=== PATIENT | male | born 1955 | race Caucasian/White ===

== ENCOUNTER → 2017-09-13 | Outpatient (CLI) | payer OTHER ==
--- NOTE | 2017-09-13 11:35 | RADIOLOGY REPORT (SQ) ---
EXAM DESCRIPTION: VENOUS UNILATERAL LOWER COMPLETED DATE/TIME: 09/13/2017 11:24 am REASON FOR STUDY: LLE SWELLING M79.89 OTHER SPECIFIED SOFT TISSUE DISORDERS COMPARISON: None. TECHNIQUE: Dynamic and static knutson scale and color images acquired of the left leg venous system. Se lected spectral images acquired with additional compression and augmentation maneuvers. The contralat eral common femoral vein and saphenofemoral junction were also imaged. Images stored on PACS. LIMITATIONS: None. FINDINGS: LEFT COMMON FEMORAL: Normal phasicity, compression and augmentation. No visualized echogenic material on g ray scale. No defects on color images. FEMORAL: Normal compression and augmentation. No visualized echogenic material on knutson scale. No defe cts on color images. POPLITEAL: Normal compression, augmentation. No visualized echogenic material on knutson scale. No defec ts on color images. CALF VESSELS: Normal compression, augmentation. No visualized echogenic material on knutson scale. No de fects on color images. GSV and SSV: Normal compression, augmentation. No visualized echogenic material on knutson scale. No def ects on color images. ANY DEEP VENOUS INSUFFICIENCY: No reflux. ANY EVIDENCE OF POPLITEAL CYST: Yes, a Ortiz's cyst with debris is present, 4 x 3 x 2 cm in size. OTHER: No other significant finding. RIGHT COMMON FEMORAL VEIN AND SAPHENOFEMORAL JUNCTION: Normal phasicity, compression and augmentation. No visualized echogenic material on knutson scale. No de fects on color images. IMPRESSION: NO EVIDENCE OF DVT OR SVT IN THE LEFT LEG. LEFT POPLITEAL FOSSA 4 X 3 X 2 CM ORTIZ'S CYST WITH DEBRIS TECHNICAL DOCUMENTATION: JOB ID: [id number] [email or web address]- All Rights Reserved Reading location - IP/workstation name: [email or web address]
== END ==
LOC: SP 09:53
PROVIDERS: ATTEND Family Medicine
DX: M71.22 Synovial cyst of popliteal space [Baker], left knee (principal); M79.89 Other specified soft tissue disorders
CPT/HCPCS: 93971

== ENCOUNTER → 2017-09-28 | Outpatient (CLI) | payer OTHER ==
--- NOTE | 2017-09-28 11:23 | RADIOLOGY REPORT (SQ) ---
EXAM DESCRIPTION: MRI RT LOWER JOINT WITHOUT COMPLETED DATE/TIME: 09/28/2017 10:54 am REASON FOR STUDY: UNSPECIFIED INTERNAL DERANGEMENT OF RIGHT KNEE M23.91 UNSPECIFIED INTERNAL DERANG EMENT OF RIGHT KNEE COMPARISON: None. TECHNIQUE: Rightknee images acquired and stored on PACS. Multiplanar images include fat sensitive s equences as T1, water sensitive sequences as FST2 or STIR, cartilage sensitive sequences as FSPD, and gradient echo sequences. LIMITATIONS: None. FINDINGS: JOINT AND BURSAE: Large joint effusion. BONE CORTEX AND MARROW: No alteration of signal to suggest marrow replacement. No worrisome bone lesi ons. No occult fracture. ACL: Intact. PCL: Intact. MCL: Intact. LCL: Intact. MEDIAL MENISCUS: Tear suspected, predominantly horizontal signal throughout the posterior horn and roosevelt dy. LATERAL MENISCUS: No tears. No abnormal signal. MEDIAL COMPARTMENT: Chondral thinning. Much of this looks full-thickness in the weight-bearing surfa guera. Underlying subchondral cysts and edema. No large osteophytes. LATERAL COMPARTMENT: Cartilage preserved. No bone bruises or reactive marrow edema. No osteophytes. PATELLA: Normal location. Thinned upper patellar hyaline cartilage without focal defects. EXTENSOR MECHANISM: Intact. Quadriceps and patella tendons normal. SOFT TISSUES: Prominent vessels consistent with varicose veins medially subcutaneous tissues. Patent major vascular structures. OTHER: No other significant finding. IMPRESSION: 1. Medial meniscus tear. 2. Extensive chondromalacia throughout the medial compartment. 3. Large joint effusion. 4. Other findings as above. TECHNICAL DOCUMENTATION: JOB ID: [id number] [employer]- All Rights Reserved Reading location - IP/workstation name: [email or web address]
== END ==
LOC: RAD 10:01
PROVIDERS: ATTEND Family Medicine
DX: M23.91 Unspecified internal derangement of right knee (principal); M25.461 Effusion, right knee; M22.41 Chondromalacia patellae, right knee